=== PATIENT | female | born 1965 | race Caucasian/White ===

== ENCOUNTER → 2024-10-17 14:19 | Outpatient (CLI) | payer BC, SELFPAY ==
--- NOTE | 2024-10-17 14:32 | DI.US.S_ITS ---
PROCEDURE: US ABDOMEN COMPLETE INDICATIONS: osteopenia screening, ascites TECHNIQUE: Real-time scanning was performed of the abdominal and retroperitoneal organs, with image documentation. Forty-nine images. COMPARISON: None. FINDINGS: Moderate diffuse abdominal ascites. Liver: Marked diffuse coarse increased echogenicity of the liver with lobulated contour has the appearance of cirrhotic change. Follow-up is needed Gallbladder: No gallstones. No ultrasound evidence of gallbladder wall thickening. Sonographic Tijerina's sign is not delineated. Biliary ducts: Intrahepatic bile ducts are non-dilated. Extrahepatic bile duct caliber measures 4 mm. Normal is 6-7 mm or less in diameter, or 10 mm or less post-cholecystectomy. Pancreas: Visualized portions of the pancreas are sonographically normal. Spleen: Spleen is normal in size and homogeneous in echotexture. Kidneys: 5 mm nonobstructing calculus left kidney interpolar. Kidneys are normal in size and echotexture. Right kidney measures 11.4 cm long; left kidney measures 10.5 cm long. No hydronephrosis. Aorta: Visualized aorta is normal in caliber at less than 3 cm. Iliacs: Proximal common iliac arteries are normal in caliber at less than 2.5 cm. IVC: Intrahepatic inferior vena cava is patent. IMPRESSION: Cirrhotic appearing liver as discussed above. Moderate ascites. No gallstones. Common bile duct 4 mm within normal limits. Follow-up is needed. If symptoms persist or worsen, CT could be performed. Dictated by: Yohan Cole M.D. on 10/17/2024 at 22:24 Approved by: Yohan Cole M.D. on 10/17/2024 at 22:39
== END ==
LOC: US 14:31
PROVIDERS: PCP Family Medicine; Referring Provider Family Medicine; Visit Provider Family Medicine
DX: R18.8 Other ascites (principal); N20.0 Calculus of kidney; R79.89 Other specified abnormal findings of blood chemistry
CPT/HCPCS: 76700

== ENCOUNTER 2025-01-03 13:46 | Outpatient (CLI) | payer BC, SELFPAY ==
[2025-01-03] VITALS (7 sets, daily range): BP systolic 117–127; BP diastolic 59–79; PULSE 85–92; RESP 18; TEMP 36.3–36.5; O2SAT 97–99
--- NOTE | 2025-01-03 13:49 | PATH_ITS ---
Note [facility] Accession Number: [id number] TESTS RESULT FLAG UNITS REF RANGE LAB Clinician Provided Cytology Information No. of containers..01 Other (Miscellaneous) Source: ABDOMINAL FLUID DIAGNOSIS: ABDOMINAL FLUID NEGATIVE FOR MALIGNANT CELLS. THIS INTERPRETATION INCLUDES EVALUATION OF A CELL BLOCK. Pathologist ICD10: R18.8 Signed out by: Riya Carvalho MD, Pathologist NPI- [id number] Performed by: Jose David Emery, Glass Loading Equipment Tender ([facility]) Gross description: 45 CC, YELLOW, HAZY RECEIVED: FRESH IN BLUE CAP CONTAINER.VO /VDU 01/04/2025 1103 Local FLAG LEGEND: L-Low Normal,H-High Normal,LL-Alert Low,HH-Alert High <-Panic Low,>-Panic High,A-Abnormal,AA-Critical Abnormal Performed at: 01 =Z [facility] [address], [place] [address] Charanjit Delgado MD, Performed at: 01 [facility] [address], [place], [place] [id number] MD Charanjit Delgado MD Phone: [phone]
--- NOTE | 2025-01-03 13:51 | DI.US.S_ITS ---
PROCEDURE: US PARACENTESIS W/ALBUMIN INDICATIONS: CIRRHOSIS TECHNIQUE: The indications, alternatives, benefits, risks, and complications of the procedure were explained to the patient. Written informed consent was obtained and placed in the chart. The abdomen and pelvis were examined sonographically, and an appropriate site was chosen for paracentesis. The skin was prepared and draped in the usual sterile fashion, and 1% lidocaine was infiltrated from the skin down through the peritoneal surface. A 19-gauge catheter-covered needle was then introduced into the peritoneal space, the catheter was advanced and the needle was withdrawn, and thereafter peritoneal fluid was withdrawn. The catheter was then removed and a dressing was applied. The fluid was discarded if the clinician did not order diagnostic testing of the fluid. COMPARISON: None. FINDINGS: Access site: Left lower quadrant Needle: One-Step paracentesis catheter with introducer needle. Fluid volume and description: 11,850 mL Fluid sent for diagnostic testing: Yes 100 mL sent as ordered cell count with differential, albumin, total protein, cytology Medications: 1% lidocaine for local anaesthesia. Complications: None. IMPRESSION: Successful ultrasound-guided paracentesis. Dictated by: Yohan Cole M.D. on 01/03/2025 at 21:03 Approved by: Yohan Cole M.D. on 01/03/2025 at 21:06
[2025-01-03 14:34] LABS: Hematocrit 35.2 % (36-46); Hemoglobin 12.4 g/dL (12.0-16.0); Mean Corpuscular HGB Conc 35.3 % (30-36); Mean Corpuscular Hemoglobin 36.6 PG (26-34); Mean Corpuscular Volume 103.7 fL (80-100); Platelet Count 388 X10^3/uL (150-400)
[2025-01-03 14:40] LABS: INR 1.1 (0.9-1.3); Prothrombin Time 12.6 SECONDS (9.4-12.5)
[2025-01-03] MEDS: ALBUMIN HUMAN 50 GM/200 ML VIAL IV (14:59)
[2025-01-03 16:04] LABS: Body Fluid Tot Nucleated Cells 192 /uL
[2025-01-03 16:32] LABS: Body Fluid Clotted? NO CLOTS PRESENT
[2025-01-03 16:39] LABS: Lymphocytes Body Fluid 74 %; MESO/MACRO/MONO Body Fluid 10 %; Neutrophils Body Fluid 16 %
== END 2025-01-03 16:46 | disposition home or self-care (01) ==
PROVIDERS: Physician Assistant; PCP Family Medicine; Referring Provider Family Medicine; Visit Provider Radiology Diagnostic Radiology
DX: K74.60 Unspecified cirrhosis of liver (principal); R18.8 Other ascites
CPT/HCPCS: 49083; 85027; 85610; 89051; 96365; 96366; P9041